=== PATIENT | female | born 1945 | race Caucasian/White ===

== ENCOUNTER 2019-02-19 19:02 | Emergency (ER) | payer MEDICARE ==
[~2019-02-19] VITALS: Ht 152.4 cm; Wt 100.7 kg
[2019-02-19] MEDS ORDERED: ONDANSETRON HCL INJ 2MG/ML 2ML 2 MG/ML VIAL IV ONE (21:00)
[2019-02-19] MEDS ORDERED: MORPHINE SULFATE 5 MG/ML VIAL IV ONE (21:00)
[2019-02-19] MEDS ORDERED: MORPHINE SULFATE INJ 4 MG/ML INJ 1ML IV ONE (21:00)
--- NOTE | 2019-02-19 22:35 | Diagnostic Imaging Report ---
EXAMINATION: Left Hip Films with AP pelvis CLINICAL HISTORY:Left hip dislocation, rule out fracture COMPARISON: None. DISCUSSION: Limited exam, as the crosstable view is markedly suboptimal due to soft tissue attenuation. Generalized osteopenia, which limits evaluation of the bony structures.. No acute, displaced fracture. 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 Degenerative changes in the right hip joint. No gross soft tissue abnormalities. IMPRESSION: 1. Generalized osteopenia, which limits evaluation of the bony structures. No acute, displaced fracture, within the limitations of the study. 2. 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 Signed by: Dr. Logan Garcia M.D. on 02/19/2019 10:32 PM
[2019-02-19] MEDS ORDERED: PROPOFOL IV EMULSION 10 MG/ML 20 ML VIAL ONE (23:07)
[2019-02-19] MEDS ORDERED: PROPOFOL IV EMULSION 10 MG/ML 20 ML VIAL IV ONE (23:15)
[2019-02-19] MEDS ORDERED: SODIUM CHLORIDE 0.9% 1000ML 1,000 ML ONE (23:15)
--- NOTE | 2019-02-19 23:15 | NUR ---
DR KEATING, DR HARRINGTON, RESPIRTORY, CHARGE NURSE AND PRIMARY NURSE ALL AT BEDSIDE FOR CLOSED REDUCTION OF LEFT HIP. 23:15 - 10CC PROPOFOL ADMINISTERED TO RT AC BY DR HARRINGTON 23:20 - REDUCTION COMPLETE. PT TOLERATED WELL 23:21 - NRB APPLIED 23:22 - 100/76 15RR 100% NRB HR 99
[2019-02-19] MEDS ORDERED: ULTRAM 50MG50 MG PO (23:39)
[2019-02-19] MEDS ORDERED: FENTANYL CITRATE/PF 100MCG/2 ML INJ IV ONE (23:45)
--- NOTE | 2019-02-19 23:49 | NUR ---
ORTHOPEDICS CONSULTATION Called by Dr. Horner for 73 yo F limited ambulator presents to ED after flexing and internally rotating leg while putting on a shoe earlier today. Patient has a history of prior left hip dislocation which was reduced. Denies numbness, paresthesias or loss of distal motor function. Denies pain in any other extremity. PMdHx: Hypothyroidism, Glaucoma Allergies: Ibuprofen SurgHx: Left Forearm ORIF, Right TKA, Left Revision MALIK (Presley Carranza) FamHx: Non-contributorys SocHx: No Tob, EtOh or Drug Use VS: 97.6 HR 86 RR 20 BP 121/48 O2 99 Left Leg: Shortened, Flexed, IR Motor: EHL, FHL, TA, G/S Sensation grossly intact Pulse + DP, Post tib Compartments soft Negative calf tenderness Xrays demonstrated left total hip dislocation 73 yo F with Left Total Hip Dislocation Under concious sedation, left hip closed reduced and verified under xray. Patient NVI and denies any new pains. Abduction pillow applied. Analgesics PRN Posterior hip precautions Discussed case with primary surgeon (Dillon GARVEY) and patient to follow up with him. Patient and son aware and amendable to plan. All questions answered. Ortho stable for discharge DO [facility]
--- NOTE | 2019-02-20 00:24 | Diagnostic Imaging Report ---
EXAMINATION: Left Hip Films CLINICAL HISTORY:Left hip pain, post reduction COMPARISON: Left hip films 02/19/2019 DISCUSSION: See impression. IMPRESSION: 1. Markedly limited/nondiagnostic crosstable lateral view due to soft tissue attenuation. 2. Interval reduction of previously visualized left total hip replacement dislocation, with proximal femoral prosthesis head projecting inside the acetabular cup on this AP view. 3. No acute, displaced fracture or dislocation. Hardware is intact. Signed by: Dr. Logan Garcia M.D. on 02/20/2019 12:21 AM
== END 2019-02-20 02:34 | disposition home or self-care (01) ==
LOC: ER 19:02
DX: S73.035A Other anterior dislocation of left hip, initial encounter (principal); X50.1XXA Overexertion from prolonged static or awkward postures, initial encounter; Y92.008 Other place in unspecified non-institutional (private) residence as the place of occurrence of the external cause
CPT/HCPCS: 73502; 99156; 99285; J2270; J2405; J2704; J7030